=== PATIENT | female | born 2000 | race Caucasian/White ===

== ENCOUNTER 2019-02-03 15:53 | Emergency (ER) | payer BC ==
[2019-02-03 16:23] VITALS: BP 108/67
--- NOTE | 2019-02-03 16:26 | UC ---
Skin Complaint HPI - HPI Summary HPI Summary: 18 yo female presents with RIGHT middle finger laceration. 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 Washed the area well with soap and water, bandaged, and came to . She states that she is UTD with her tetanus. - History of Current Complaint Chief Complaint: UCUpperExtremity Time Seen by Provider: 02/03/19 16:26 Stated Complaint: RT MIDDLE FINGER LAC Hx Obtained From: Patient Hx Last Menstrual Period: 01/04/19 Onset/Duration: Sudden Onset Onset Severity: Mild Current Severity: Mild Pain Intensity: 4 Pain Scale Used: 0-10 Numeric - Allergy/Home Medications Allergies/Adverse Reactions: Allergies Allergy/AdvReac Type Severity Reaction Status Date / Time azithromycin [From Zithromax] Allergy Mild Hives Verified 02/03/19 16:23 Home Medications: Home Medications Azelastine/Fluticasone ARISTEO(NF [Dymista(NF)] 1 spray INH DAILY 02/03/19 [History Confirmed 02/03/19] Fluticasone NASAL SPRAY 50MCG* [Flonase NASAL SPRAY 50MCG*] 1 spray INH DAILY [History Confirmed 02/03/19] PMH/Surg Hx/FS Hx/Imm Hx - Additional Past Medical History Additional PMH: Allergies - Surgical History Surgical History: Yes Surgery Procedure, Year, and Place: appendectomy. tonsillectomy - Family History Known Family History: Positive: None - Social History Occupation: Student Lives: Dormitory/Roommates Alcohol Use: Occasionally Substance Use Type: None Smoking Status (MU): Never Smoked Tobacco - Immunization History Most Recent Tetanus Shot: 2010 Review of Systems All Other Systems Reviewed And Are Negative: No Constitutional: Positive: Negative Skin: Positive: Other - Right middle finger laceration Respiratory: Positive: Negative Cardiovascular: Positive: Negative Neurological: Positive: Negative Psychological: Positive: Negative Physical Exam - Summary Physical Exam Summary: GENERAL: NAD. WDWN. No pain distress. SKIN: RIGHT MIDDLE FINGER: Volar aspect overlying PIP with 1.0cm linear laceration just through the dermis. No tendon involvement. NECK: Supple. Nontender. No lymphadenopathy. CHEST: No accessory muscle use. Breathing comfortably and in no distress. CV: Pulses intact. Cap refill <2seconds MSK: FROM right middle finger with intact strength at MCP, PIP, and DIP NEURO: Alert. PSYCH: Age appropriate behavior. Triage Information Reviewed: Yes Vital Signs: Initial Vital Signs Temp 99 F 02/03/19 16:17 Pulse 88 02/03/19 16:17 Resp 16 02/03/19 16:17 BP 108/67 02/03/19 16:17 Pulse Ox 100 02/03/19 16:17 Vital Signs Reviewed: Yes Laceration Repair - Laceration Repair 1 Description: Linear Laceration Size After Repair: Length (cm) - 1.0 Modified For Repair: No Anesthesia Used: 2.0% Lido Irrigation With Pressure Irrigation Device: Yes Closure Material: Sutures - #4 Closure Method: Single Layer Suture Of: Skin Suture Type: Prolene - 6-0 Course/Dx - Course Course Of Treatment: The procedure was explained to the pt and all questions were answered. A time out was performed, witnessed, and signed. The area was irrigated with 20mL sterile saline. 1mL of 2% lidocaine without epi was administered and good anesthetization was achieved. In the usual sterile fashion, FOUR 6-0 prolene interrupted sutures were placed. Homeostasis achieved. The wound was bandaged with tubegauze. Pt tolerated procedure well. - Diagnoses Provider Diagnosis: Laceration of finger Discharge ED - Sign-Out/Discharge Documenting (check all that apply): Patient Departure All imaging exams completed and their final reports reviewed: No Studies - Discharge Plan Condition: Stable Disposition: HOME Patient Education Materials: Care For Your Stitches (DC), Laceration (DC) Forms: *School Release Referrals: No Primary Care Phys,NOPCP [Primary Care Provider] - Additional Instructions: 1) Please keep the area bandage, clean, dry, and intact for the next 24- 48hours. Then change the bandage daily until sutures are removed. 2) If you develop a fever, colored or thick discharge, increased pain or swelling - please call your PCP or return for a wound check. 3) Please return in 10-14 days to have your FOUR sutures removed. - Billing Disposition and Condition Condition: STABLE Disposition: Home
[2019-02-03] MEDS ORDERED: Lidocaine 2% PF * 5 ML VIAL INJ ONE (16:32)
== END 2019-02-03 17:50 | disposition home or self-care (01) ==
LOC: UCEAST 15:53
DX: S61.212A Laceration without foreign body of right middle finger without damage to nail, initial encounter (principal); Z88.1 Allergy status to other antibiotic agents; W25.XXXA Contact with sharp glass, initial encounter; Y92.89 Other specified places as the place of occurrence of the external cause
CPT/HCPCS: 12001; 99201; G0463

== ENCOUNTER 2019-05-15 11:14 | Emergency (ER) | payer BC ==
[2019-05-15 11:53] VITALS: BP 124/73
--- NOTE | 2019-05-15 12:20 | UC ---
Skin Complaint HPI - HPI Summary HPI Summary: The patient is a 18-year-old female that recently returned from [place] after a two-week class. 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 She did a lot of walking. She did swim in some [place]. She did apply DEET. The rash has not worsened since yesterday. The rash is confluent on her neck and that is where it is most pruritic. She denies any fever or chills. She has been taking Benadryl for the itching that has helped. - History of Current Complaint Chief Complaint: UCRash Time Seen by Provider: 05/15/19 11:55 Stated Complaint: RASH HIVES Hx Obtained From: Patient Hx Last Menstrual Period: now Onset/Duration: Gradual Onset, Lasting Hours Timing: Constant Onset Severity: Mild Current Severity: Moderate Pain Intensity: 0 Pain Scale Used: 0-10 Numeric Location: Generalized Character: Pruritus, Redness, Raised Aggravating Factor(s): Nothing Alleviating Factor(s): Antihistamines Associated Signs & Symptoms: Positive: Rash - Allergy/Home Medications Allergies/Adverse Reactions: Allergies Allergy/AdvReac Type Severity Reaction Status Date / Time azithromycin [From Zithromax] Allergy Mild Hives Verified 05/15/19 11:53 PMH/Surg Hx/FS Hx/Imm Hx Previously Healthy: Yes - Surgical History Surgical History: Yes Surgery Procedure, Year, and Place: appendectomy. tonsillectomy - Family History Known Family History: Positive: None - Social History Alcohol Use: Occasionally Substance Use Type: None Smoking Status (MU): Never Smoked Tobacco - Immunization History Most Recent Tetanus Shot: 2010 Review of Systems All Other Systems Reviewed And Are Negative: Yes Constitutional: Positive: Negative Skin: Positive: Rash Eyes: Positive: Negative ENT: Positive: Negative Respiratory: Positive: Negative Cardiovascular: Positive: Negative Gastrointestinal: Positive: Negative Genitourinary: Positive: Negative Motor: Positive: Negative Neurovascular: Positive: Negative Musculoskeletal: Positive: Negative Neurological: Positive: Negative Psychological: Positive: Negative Physical Exam Triage Information Reviewed: Yes Appearance: Well-Appearing, No Pain Distress, Well-Nourished Vital Signs: Initial Vital Signs Temp 99.1 F 05/15/19 11:49 Pulse 84 05/15/19 11:49 Resp 16 05/15/19 11:49 BP 124/73 05/15/19 11:49 Pulse Ox 100 05/15/19 11:49 Vital Signs Reviewed: Yes ENT Exam: Normal Dental Exam: Normal Neck: Positive: Supple, Nontender, No Lymphadenopathy Respiratory: Positive: Lungs clear, Normal breath sounds, No respiratory distress, No accessory muscle use Cardiovascular: Positive: RRR, No Murmur Bowel Sounds: Positive: Present Musculoskeletal: Positive: ROM Intact, No Edema Neurological: Positive: Alert Psychological Exam: Normal Skin Exam: Other - confluent red raised rash on neck to clavicles, no rash on face or palms (+) dermatopgraphia, red raised papules on trunk and ext with pale surround Course/Dx - Diagnoses Provider Diagnosis: Rash and nonspecific skin eruption Discharge ED - Sign-Out/Discharge Documenting (check all that apply): Patient Departure All imaging exams completed and their final reports reviewed: No Studies - Discharge Plan Condition: Stable Disposition: HOME Prescriptions: predniSONE 20 mg TAB [Deltasone 20 MG TAB*] 40 mg PO DAILY #8 tab Patient Education Materials: Acute Rash (ED) Referrals: Sandi Rosenthal [Medical Doctor] - As Soon As Possible Alysa Chaudhry MD [Medical Doctor] - As Soon As Possible Additional Instructions: continue benadryl as needed for rash I 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
== END 2019-05-15 12:24 | disposition home or self-care (01) ==
LOC: UCEAST 11:14
DX: R21 Rash and other nonspecific skin eruption (principal); Z88.1 Allergy status to other antibiotic agents
CPT/HCPCS: 99212; G0463; J7512